=== PATIENT | male | born 1985 | race African-American/Black ===

== ENCOUNTER 2018-05-15 00:28 | Emergency (ER) | payer OTHER ==
[~2018-05-15] VITALS: Ht 177.8 cm; Wt 81.7 kg
[2018-05-15 01:32] LABS: BASOPHILS 0.7 % (0.0-2.0); EOSINOPHILS 2.6 % (0.0-3.0); HEMATOCRIT 43.5 % (42.0-52.0); HEMOGLOBIN 15.4 gm/dL (14.0-18.0); LYMPHOCYTES 28.3 % (24.0-44.0); MCH 31.2 pg (26.0-34.0); MCHC 35.4 g/dL (28.0-37.0); MCV 88.1 fL (80.0-100.0); MONOCYTES 9.4 % (1.0-8.0); PLATELET COUNT 243 thou/uL (150-400); RBC 4.94 mil/uL (4.50-6.00); RDW 12.6 % (10.5-14.5); WBC 10.2 thou/uL (4.0-11.0)
[2018-05-15 01:38] LABS: CALCIUM 8.8 mg/dL (8.5-10.1); CREATININE 1.3 mg/dL (0.7-1.3); POTASSIUM 3.6 mmol/L (3.5-5.1)
[2018-05-15] MEDS ORDERED: GRISEOFULVIN500 MG PO (02:13)
[2018-05-15] MEDS ORDERED: NIZORAL120 ML TOP (02:13)
[2018-05-15 03:09] VITALS: BP 125/81
== END 2018-05-15 03:25 | disposition home or self-care (01) ==
LOC: ER 00:28
PROVIDERS: Student in an Organized Health Care Education/Training Program
DX: S92.351A Displaced fracture of fifth metatarsal bone, right foot, initial encounter for closed fracture (principal); B35.0 Tinea barbae and tinea capitis; K08.89 Other specified disorders of teeth and supporting structures; W22.8XXA Striking against or struck by other objects, initial encounter; Y93.89 Activity, other specified; Y92.89 Other specified places as the place of occurrence of the external cause; Y99.8 Other external cause status